=== PATIENT | male | born 1970 | race American Indian/Alaskan Native ===

== ENCOUNTER 2018-05-18 10:33 | Inpatient (IN) | payer SELFPAY ==
[2018-05-18] MEDS ORDERED: TORADOL IV ONE ×2 (11:50→15:24)
[2018-05-18] MEDS ORDERED: ZOFRAN IV ONE (11:50)
[2018-05-18] MEDS ORDERED: PEPCID IV ONE (11:50)
[2018-05-18] MEDS ORDERED: NACL 0.9% 1000 ML 1,000 ML IV ONE ×2 (11:50→15:32)
--- NOTE | 2018-05-18 11:52 | Emergency Department Report ---
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 Patient ate a fruit cup. Patient states several hours later he began becoming very nauseous with epigastric pain radiating to the back. Patient states he vomited approximately 3 times. Patient denies any fever cough, congestion or diarrhea at this time. Patient on focused physical exam does have epigastric tenderness on palpation with some mild involuntary guarding. Patient will be sent to a treatment room for IV fluids meds for symptomatic relief as well as a CT of the abdomen and pelvis and laboratory studies including a lipase.
--- NOTE | 2018-05-18 11:56 | Emergency Department Report ---
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 Patient ate a fruit cup. Patient states several hours later he began becoming very nauseous with epigastric pain radiating to the back. Patient states he vomited approximately 3 times. Patient denies any fever cough, congestion or diarrhea at this time. Patient reports that he is having pain 8 out of 10, crampy and sharp and it comes and goes. Denies any blood in his stool. No medication taken prior to coming to the emergency room. No alleviating factors but exacerbated if he takes a deep breath or with palpation. MD Complaint: abdominal pain Onset/Timin -: days(s) Location: LUQ, RUQ, epigastric Radiation: back Migration to: no migration Severity: severe Severity scale (0 -10): 8 Quality: cramping, sharp Consistency: intermittent Improves With: nothing Worsens With: vomiting, other (palpation and taking a deep breath) Context: possible food poisoning Associated Symptoms: nausea, vomiting. denies: diarrhea, fever, chills, constipation, dysuria, hematemesis, hematochezia, melena, hematuria, anorexia, syncope - Related Data Home Medications Medication Instructions Recorded Confirmed Last Taken Lisinopril [Zestril] 20 mg PO QDAY 05/18/18 05/18/18 05/18/18 Allergies Allergy/AdvReac Type Severity Reaction Status Date / Time No Known Allergies Allergy Unverified 05/18/18 11:57 ED Review of Systems ROS: Stated complaint: HARD TO BREATH/BACK PAIN Other details as noted in HPI Constitutional: denies: chills, fever ENT: denies: ear pain, throat pain, congestion Respiratory: denies: cough, shortness of breath, SOB with exertion, SOB at rest , stridor, wheezing Cardiovascular: denies: chest pain, palpitations, dyspnea on exertion, edema, syncope Gastrointestinal: abdominal pain, nausea, vomiting. denies: diarrhea, constipation, hematemesis, melena, hematochezia Genitourinary: denies: urgency, dysuria, frequency, hematuria, discharge, testicular pain, testicular mass Musculoskeletal: denies: back pain, joint swelling, arthralgia, myalgia Skin: denies: rash, lesions Neurological: denies: headache, weakness, paresthesias ED Past Medical Hx - Past Medical History Previous Medical History?: Yes Hx Hypertension: Yes - Surgical History Past Surgical History?: Yes Additional Surgical History: back surgery - Family History Family history: hypertension - Social History Smoking Status: Never Smoker Substance Use Type: None - Medications Home Medications: Home Medications Medication Instructions Recorded Confirmed Last Taken Type Lisinopril [Zestril] 20 mg PO QDAY 05/18/18 05/18/18 05/18/18 History ED Physical Exam - General Limitations: No Limitations General appearance: alert, in no apparent distress - Head Head exam: Present: atraumatic, normocephalic, normal inspection - Eye Eye exam: Present: normal appearance, PERRL, EOMI Pupils: Present: normal accommodation - ENT ENT exam: Present: normal exam, normal orophraynx, mucous membranes moist - Neck Neck exam: Present: normal inspection, full ROM. Absent: tenderness, lymphadenopathy - Respiratory Respiratory exam: Present: normal lung sounds bilaterally. Absent: respiratory distress, chest wall tenderness - Cardiovascular Cardiovascular Exam: Present: regular rate, normal rhythm, normal heart sounds. Absent: systolic murmur, diastolic murmur - GI/Abdominal GI/Abdominal exam: Present: soft, tenderness (patient has a palpate his upper quadrants.), guarding, rebound, normal bowel sounds. Absent: distended, rigid, organomegaly, mass, bruit, pulsatile mass, hernia - Extremities Exam Extremities exam: Present: normal inspection, full ROM, normal capillary refill , other (No cce. + 2 pulses in all extremities, no neurovascular compromise). Absent: tenderness, pedal edema, joint swelling, calf tenderness - Back Exam Back exam: Present: normal inspection, full ROM, other (patient ambulates without any difficulties). Absent: tenderness, CVA tenderness (R), CVA tenderness (L), muscle spasm, paraspinal tenderness, vertebral tenderness, rash noted - Neurological Exam Neurological exam: Present: alert, oriented X3, normal gait, reflexes normal. Absent: motor sensory deficit - Psychiatric Psychiatric exam: Present: normal affect, normal mood - Skin Skin exam: Present: warm, dry, intact, normal color. Absent: rash ED Course Vital Signs 05/18/18 05/18/18 05/18/18 10:58 11:39 12:24 Temperature 98.5 F Pulse Rate 89 Respiratory 18 18 18 Rate Blood Pressure 154/91 O2 Sat by Pulse 97 97 Oximetry 05/18/18 05/18/18 12:54 15:25 Temperature Pulse Rate Respiratory 18 20 Rate Blood Pressure O2 Sat by Pulse Oximetry - Reevaluation(s) Reevaluation #1: 05/18/18 13:17 Patient given Pepcid 20 mg IV, Toradol 30 mg IV and normal saline bolus. He is also given Maalox 30 mL and lidocaine 15 mL and up and reevaluation abdominal pain is better. Minimal tenderness to epigastric area. He still reports some pain to his back but reports that he is feeling better. Reevaluation #2: 05/18/18 14:50 Patient with partial small bowel obstruction. The assessment is better he said he is having some pain but only to his back. Denies any nausea present. Patient is started on IV fluid normal somnolent, NG tube to low intermittent suction and nothing by mouth status. called place for surgery. Reevaluation #3: 05/18/18 15:27 Patient is stable and normal exam stable with no pain to palpation but still minimal back pain. He received Toradol 30 mg IV and normal saline at 150 mL an hour. I spoke with Dr. Dixon's insertion and she wants patient admitted to medicine and patient's. NG tube placed to low intermittent suction. Dr. Bee as a hospitalist aware and saw patient. Patient updated on pads and is in agreement. ED Medical Decision Making - Lab Data Result diagrams: 05/18/18 Unknown 05/18/18 Unknown Lab Results 05/18/18 05/18/18 05/18/18 Range/Units 16:22 Unknown Unknown WBC 11.4 H (4.5-11.0) K/mm3 RBC 4.97 (3.65-5.03) M/mm3 Hgb 16.5 H (11.8-15.2) gm/dl Hct 46.5 H (35.5-45.6) % MCV 94 (84-94) fl MCH 33 H (28-32) pg MCHC 36 H (32-34) % RDW 12.7 L (13.2-15.2) % Plt Count 316 (140-440) K/mm3 Lymph % (Auto) 19.7 (13.4-35.0) % Gibson % (Auto) 5.7 (0.0-7.3) % Eos % (Auto) 7.7 H (0.0-4.3) % Baso % (Auto) 1.0 (0.0-1.8) % Lymph # 2.2 (1.2-5.4) K/mm3 Gibson # 0.6 (0.0-0.8) K/mm3 Eos # 0.9 H (0.0-0.4) K/mm3 Baso # 0.1 (0.0-0.1) K/mm3 Seg Neutrophils % 65.9 (40.0-70.0) % Seg Neutrophils # 7.5 (1.8-7.7) K/mm3 Sodium 134 L (137-145) mmol/L Potassium 4.5 (3.6-5.0) mmol/L Chloride 97.4 L (98-107) mmol/L Carbon Dioxide 22 (22-30) mmol/L Anion Gap 19 mmol/L BUN 9 (9-20) mg/dL Creatinine 0.5 L (0.8-1.5) mg/dL Estimated GFR > 60 ml/min BUN/Creatinine Ratio 18 % Glucose 105 H (75-100) mg/dL Lactic Acid 0.80 (0.7-2.0) mmol/L Calcium 8.9 (8.4-10.2) mg/dL Total Bilirubin 0.30 (0.1-1.2) mg/dL AST 19 (5-40) units/L ALT 18 (7-56) units/L Alkaline Phosphatase 118 (35-129) units/L Total Protein 7.3 (6.3-8.2) g/dL Albumin 4.6 (3.9-5) g/dL Albumin/Globulin Ratio 1.7 % Lipase (13-60) units/L 05/18/18 Range/Units Unknown WBC (4.5-11.0) K/mm3 RBC (3.65-5.03) M/mm3 Hgb (11.8-15.2) gm/dl Hct (35.5-45.6) % MCV (84-94) fl MCH (28-32) pg MCHC (32-34) % RDW (13.2-15.2) % Plt Count (140-440) K/mm3 Lymph % (Auto) (13.4-35.0) % Gibson % (Auto) (0.0-7.3) % Eos % (Auto) (0.0-4.3) % Baso % (Auto) (0.0-1.8) % Lymph # (1.2-5.4) K/mm3 Gibson # (0.0-0.8) K/mm3 Eos # (0.0-0.4) K/mm3 Baso # (0.0-0.1) K/mm3 Seg Neutrophils % (40.0-70.0) % Seg Neutrophils # (1.8-7.7) K/mm3 Sodium (137-145) mmol/L Potassium (3.6-5.0) mmol/L Chloride (98-107) mmol/L Carbon Dioxide (22-30) mmol/L Anion Gap mmol/L BUN (9-20) mg/dL Creatinine (0.8-1.5) mg/dL Estimated GFR ml/min BUN/Creatinine Ratio % Glucose (75-100) mg/dL Lactic Acid (0.7-2.0) mmol/L Calcium (8.4-10.2) mg/dL Total Bilirubin (0.1-1.2) mg/dL AST (5-40) units/L ALT (7-56) units/L Alkaline Phosphatase (35-129) units/L Total Protein (6.3-8.2) g/dL Albumin (3.9-5) g/dL Albumin/Globulin Ratio % Lipase 17 (13-60) units/L - EKG Data -: EKG Interpreted by Me (attending physician) EKG shows normal: sinus rhythm Rate: normal (sinus rhythm at 79 bpm) - EKG Data When compared to previous EKG there are: no significant change Interpretation: no acute changes, normal EKG - Radiology Data Radiology results: report reviewed CT scan of the abdomen and pelvis with IV contrast dated by radiologist and report reviewed by myself. Please see reports P beatient: GIL MATOS MR#: [id number] : 1970 Acct:[id number] Age/Sex: 47 / M ADM Date: 05/18/18 Loc: ED Attending Dr: Ordering Physician: ROBERT ROBINS MD Date of Service: 05/18/18 Procedure(s): CT abdomen pelvis w con Accession Number(s): [id number] cc: ROBERT ROBINS MD CT ABDOMEN PELVIS WITH CONTRAST: HISTORY: Nausea and vomiting, abdominal pain with radiation to back and. COMPARISON: none. TECHNIQUE: Helical CT in 1.25mm intervals following IV contrast. Sagittal and coronal reconstructions. FINDINGS: Lung bases: Normal. Liver: Normal. Biliary system: Normal. Pancreas: Normal. Spleen: Normal. Kidneys/ureters/bladder: Normal. Adrenal glands: Normal. Aorta: Normal. Intestines: There are multiple dilated and fluid-filled loops of jejunum. The ileum and colon are decompressed. There are multiple diverticula in the distal colon but no inflammatory changes. Appendix: Normal. Ascites: None. Adenopathy: None. Musculoskeletal: Normal. IMPRESSION: Partial small bowel obstruction. Transcribed By: TTR Dictated By: ARNOLD BARBER JR, MD Electronically Authenticated By: ARNOLD BARBER JR, MD Signed Date/Time: 05/18/181357 DD/ 53 TD/TT: 05/18/181357 - Medical Decision Making This is a 47-year-old male presents to the emergency room after having 2 days of nausea and vomited with upper abdominal pain after eating a fruit cup. Diagnostics: CT scan of the abdomen and pelvis with IV contrast shows patient with partial small bowel obstruction. Please refer to diagnostic reports section for details on CT scan. Labs: CBC and CMP stable except for some minor abnormalities. Lipase normal. Troponin normal values, lactic acid is normal. EKG normal sinus rhythm Assessment/plan 1: Abdominal pain, upper quadrant-better with Toradol 30 mg IV, lidocaine 15 mils along with Maalox 30 mils by mouth 2: Nausea and vomiting-better with Pepcid 20 mg IV and Zofran 4 mg IV. Patient was given IV fluid normal saline 1 L 3: Small bowel obstruction-patient's with NG tube to low intermittent suction, normal saline at 1 50 mL an hour and made nothing by mouth. I spoke with Dr. Dixon who is a surgeon on-call and informed her of patient's CT scan results. She wants patient to be admitted to the hospital by hospitalist which I spoke with Dr. Bee and he accepted patient to be admitted to medical floor. Patient is stable and pain is controlled. I discussed with him all his lab results and CT scan results and he voiced understanding. And he is agreement with admission. - Differential Diagnosis pancreatitis, GBD, liver disease, gastritis ,bowel obstruction, enteritis, Critical care attestation.: If time is entered above; I have spent that time in minutes in the direct care of this critically ill patient, excluding procedure time. ED Disposition Clinical Impression: Small bowel obstruction Abdominal pain Qualifiers: Abdominal location: upper abdomen, unspecified Qualified Code(s): R10.10 - Upper abdominal pain, unspecified Nausea & vomiting Qualifiers: Vomiting type: unspecified Vomiting Intractability: non-intractable Qualified Code(s): R11.2 - Nausea with vomiting, unspecified Disposition: 09 OP ADMIT IP TO THIS HOSP Is pt being admited?: Yes Does the pt Need Aspirin: No Condition: Stable Referrals: PRIMARY CARE, [Primary Care Provider] - 3-5 Days
[2018-05-18] MEDS ORDERED: LIDOCAINE VISCOUS 2% PO ONE (11:57)
[2018-05-18] MEDS ORDERED: ALUM-MAG HYDROX-SIMETH 200-200-20MG/5ML PO ONE (11:57)
[2018-05-18 12:26] LABS: Basophils # (Auto) 0.1 K/mm3 (0.0-0.1); Eosinophils # (Auto) 0.9 K/mm3 (0.0-0.4); Eosinophils % (Auto) 7.7 % (0.0-4.3); Lymphocytes # (Auto) 2.2 K/mm3 (1.2-5.4); Lymphocytes % (Auto) 19.7 % (13.4-35.0); Mean Corpuscular HGB Conc 36 % (32-34); Mean Corpuscular Hemoglobin 33 pg (28-32); Mean Corpuscular Volume 94 fl (84-94); Monocytes # (Auto) 0.6 K/mm3 (0.0-0.8); Monocytes % (Auto) 5.7 % (0.0-7.3); Platelet Count 316 K/mm3 (140-440); Red Blood Count 4.97 M/mm3 (3.65-5.03); Red Cell Distribution Width 12.7 % (13.2-15.2)
[2018-05-18 12:47] LABS: Hematocrit 46.5 % (35.5-45.6); Hemoglobin 16.5 gm/dl (11.8-15.2)
[2018-05-18 12:57] LABS: Alanine Aminotransferase 18 units/L (7-56); Albumin 4.6 g/dL (3.9-5); BUN/Creatinine Ratio 18; Blood Urea Nitrogen 9 mg/dL (9-20); Calcium 8.9 mg/dL (8.4-10.2); Hemolysis Index 14
--- NOTE | 2018-05-18 13:59 | Cat Scan Report ---
CT ABDOMEN PELVIS WITH CONTRAST: HISTORY: Nausea and vomiting, abdominal pain with radiation to back and. COMPARISON: none. TECHNIQUE: Helical CT in 1.25mm intervals following IV contrast. Sagittal and coronal reconstructions. FINDINGS: Lung bases: Normal. Liver: Normal. Biliary system: Normal. Pancreas: Normal. Spleen: Normal. Kidneys/ureters/bladder: Normal. Adrenal glands: Normal. Aorta: Normal. Intestines: There are multiple dilated and fluid-filled loops of jejunum. The ileum and colon are decompressed. There are multiple diverticula in the distal colon but no inflammatory changes. Appendix: Normal. Ascites: None. Adenopathy: None. Musculoskeletal: Normal. IMPRESSION: Partial small bowel obstruction.
[2018-05-18] MEDS: NACL 0.9% 1000 ML 1,000 ML IV ONE ×2 (15:07→15:34)
[2018-05-18] MEDS ORDERED: TORADOL ONE (15:07)
--- NOTE | 2018-05-18 15:54 | History and Physical Report ---
History of Present Illness Chief complaint: I have pain in my stomach History of present illness: 47 YO Male with HTN, Obesity, Nicotine Dependence presents to ED for evaluation. Pt states that he has experienced abdominal pain over the past 1 day with persistent symptoms over the same time frame. Pt states that pain is 8/ 10, radiates to his back, crampy in nature, sharp, intermittent, no exacerbating or alleviating factors, associated with nausea, and 3 episodes of vomiting. Pt denies fever, chills, CP, Palpitations, BRBPR, diarrhea, Trauma, skin rash. Pt acknowledges eating prepared food from a truck stop prior to symptom onset. Pt seen and evaluated in ED and found to have evidence of bowel obstruction. Surgery consulted in ED. Past History Past Medical History: hypertension Past Surgical History: Other (BAck surgery) Social history: single, smoking Family history: CAD, cancer, diabetes, hypertension Medications and Allergies Allergies Allergy/AdvReac Type Severity Reaction Status Date / Time No Known Allergies Allergy Unverified 05/18/18 11:57 Home Medications Medication Instructions Recorded Confirmed Last Taken Type Lisinopril [Zestril] 20 mg PO QDAY 05/18/18 05/18/18 05/18/18 History Active Meds: Active Medications Sodium Chloride (Nacl 0.9% 1000 Ml) 1,000 mls @ 125 mls/hr IV ONCE ONE Stop: 05/18/18 22:47 Last Admin: 05/18/18 15:34 Dose: Not Given Sodium Chloride (Nacl 0.9% 1000 Ml) 1,000 mls @ 999 mls/hr IV BOLUS ONE Stop: 05/18/18 16:32 Last Admin: 05/18/18 15:34 Dose: 999 mls/hr Review of Systems Constitutional: no weight loss, no weight gain, no fever, no chills Ears, nose, mouth and throat: no ear pain, no ear discharge, no tinnitis, no decreased hearing, no nasal congestion Cardiovascular: no chest pain, no orthopnea, no palpitations, no rapid/ irregular heart beat, no edema, no syncope, no lightheadedness, no shortness of breath Respiratory: no cough, no cough with sputum, no excessive sputum, no hemoptysis , no shortness of breath, no dyspnea on exertion Gastrointestinal: abdominal pain, nausea, vomiting, no change in bowel habits, no hematemesis, no BRBPR, no melena, no hematochezia, no excessive gas, no jaundice Genitourinary Male: no flank pain, no discharge, no urinary frequency, no urinary hesitancy, no nocturia Rectal: no pain, no incontinence, no bleeding, no itching, no hemorrhoids Musculoskeletal: no neck stiffness, no neck pain, no shooting arm pain, no arm numbness/tingling, no low back pain, no shooting leg pain Integumentary: no rash, no pruritis, no redness, no sores, no wounds Neurological: no head injury, no transient paralysis, no paralysis, no weakness , no parathesias, no numbness, no tingling, no seizures, no syncope Psychiatric: no anxiety, no memory loss, no change in sleep habits, no sleep disturbances, no hypersomnia, no change in appetite Endocrine: no cold intolerance, no heat intolerance, no polyphagia, no excessive thirst, no polydipsia, no polyuria, no nocturia Hematologic/Lymphatic: no easy bruising, no easy bleeding, no lymphadenopathy, no lymphedema Allergic/Immunologic: no urticaria, no allergic rhinitis, no wheezing, no persistent infections, no anaphylaxis, no angioedema Exam - Constitutional Vitals: Temp Pulse Resp BP Pulse Ox 98.5 F 89 20 154/91 97 05/18/18 10:58 05/18/18 10:58 05/18/18 15:25 05/18/18 10:58 05/18/18 11:39 General appearance: Present: mild distress, obese - EENT Eyes: Present: PERRL ENT: hearing intact, clear oral mucosa - Neck Neck: Present: supple, normal ROM - Respiratory Respiratory effort: normal Respiratory: bilateral: CTA - Cardiovascular Heart Sounds: Present: S1 & S2. Absent: rub, click - Extremities Extremities: pulses symmetrical, No edema Peripheral Pulses: within normal limits - Abdominal General gastrointestinal: Present: soft, tender, distended, normal bowel sounds. Absent: absent bowel sounds, hepatomegaly, splenomegaly, mass, hernia Male genitourinary: Present: normal - Integumentary Integumentary: Present: clear, warm, dry - Musculoskeletal Musculoskeletal: gait normal, strength equal bilaterally - Psychiatric Psychiatric: appropriate mood/affect, intact judgment & insight - Neurologic Neurologic: CNII-XII intact, moves all extremities Results - Labs CBC & Chem 7: 05/18/18 Unknown 05/18/18 Unknown Labs: Abnormal lab results 05/18/18 05/18/18 Range/Units Unknown Unknown WBC 11.4 H (4.5-11.0) K/mm3 Hgb 16.5 H (11.8-15.2) gm/dl Hct 46.5 H (35.5-45.6) % MCH 33 H (28-32) pg MCHC 36 H (32-34) % RDW 12.7 L (13.2-15.2) % Eos % (Auto) 7.7 H (0.0-4.3) % Eos # 0.9 H (0.0-0.4) K/mm3 Sodium 134 L (137-145) mmol/L Chloride 97.4 L (98-107) mmol/L Creatinine 0.5 L (0.8-1.5) mg/dL Glucose 105 H (75-100) mg/dL Assessment and Plan - Patient Problems (1) Bowel obstruction Current Visit: Yes Status: Acute Qualifiers: Intestinal obstruction extent: partial Plan to address problem: Surgery consulted in ED, serial abdominal exam, gastric decompression as per surgical team, CT abdomen/pelvis, serial abdominal exam. (2) Nicotine dependence Current Visit: Yes Status: Acute Qualifiers: Nicotine product type: cigarettes Substance use status: in withdrawal Qualified Code(s): F17.213 - Nicotine dependence, cigarettes, with withdrawal Plan to address problem: smoking cessation counseling, supportive care. (3) DVT prophylaxis Current Visit: Yes Status: Acute Plan to address problem: SCD to BLE while in bed.
[2018-05-18] MEDS ORDERED: ZOFRAN IV PRN (16:38)
[2018-05-18] MEDS ORDERED: SODIUM CHLORIDE FLUSH SYRINGE 10 ML IV PRN (16:38)
[2018-05-18] MEDS ORDERED: PROVENTIL IH PRN (16:38)
[2018-05-18] MEDS ORDERED: D5/0.45NS 1,000 ML IV SCH (17:25)
--- NOTE | 2018-05-18 18:07 | Consultation ---
History of Present Illness Consult date: 05/18/18 Chief complaint: abdominal pain - History of present illness History of present illness: 47 yo M with hx of HTN presents to ER with 1 day hx of periumbilical abdominal pain, nausea, and emesis. The patient states the pain is dull, radiates to both flanks, and is moderate in intensity. He has never had pain like this before. 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 He states his last BM was yesterday and he has been passing gas up until yesterday. He had one episode of emesis which consisted of the food he ate , this was nonbilious and nonbloody. He feels better now and does not have any nausea. His pain has improved after he vomited. He drove himself to the hospital. His last cscope was 3-4 years ago and showed diverticula. Past History Past Medical History: hypertension Past Surgical History: Other (Back surgery) Social history: smoking (2PPD). denies: alcohol abuse, prescription drug abuse Family history: CAD, cancer (breast, bladder), diabetes, hypertension Medications and Allergies Allergies Allergy/AdvReac Type Severity Reaction Status Date / Time No Known Allergies Allergy Unverified 05/18/18 11:57 Home Medications Medication Instructions Recorded Confirmed Last Taken Type Lisinopril [Zestril] 20 mg PO QDAY 05/18/18 05/18/18 05/18/18 History Active Meds: Active Medications Acetaminophen (Tylenol) 650 mg PO Q4H PRN PRN Reason: Pain MILD(1-3)/Fever >100.5/ROSAS Albuterol (Proventil) 2.5 mg IH Q4HRT PRN PRN Reason: Shortness Of Breath Dextrose/Sodium Chloride (D5/0.45ns) 1,000 mls @ 100 mls/hr IV DIRECT CARRIE Lisinopril (Zestril) 20 mg PO QDAY CARRIE Ondansetron HCl (Zofran) 4 mg IV Q8H PRN PRN Reason: Nausea And Vomiting Sodium Chloride (Sodium Chloride Flush Syringe 10 Ml) 10 ml IV BID CARRIE Sodium Chloride (Sodium Chloride Flush Syringe 10 Ml) 10 ml IV PRN PRN PRN Reason: LINE FLUSH Review of Systems All systems: negative (10 pt ROS performed and negative except for that listed in HPI) Exam Vital Signs Temp Pulse Resp BP Pulse Ox 98.5 F 89 18 154/91 97 05/18/18 10:58 05/18/18 10:58 05/18/18 10:58 05/18/18 10:58 05/18/18 10:58 Narrative exam: Gen: AAOx3. NAD ENT: no scleral icterus or conjunctival pallor CV: s1, S2+ Resp: even and unlabored Abd: soft, ND, mild TTP in LUQ, epigastrum and L mid abdomen. No r/r/g Ext: no c/c/e Results - Labs 05/18/18 Unknown 05/18/18 Unknown Abnormal lab results 05/18/18 05/18/18 Range/Units Unknown Unknown WBC 11.4 H (4.5-11.0) K/mm3 Hgb 16.5 H (11.8-15.2) gm/dl Hct 46.5 H (35.5-45.6) % MCH 33 H (28-32) pg MCHC 36 H (32-34) % RDW 12.7 L (13.2-15.2) % Eos % (Auto) 7.7 H (0.0-4.3) % Eos # 0.9 H (0.0-0.4) K/mm3 Sodium 134 L (137-145) mmol/L Chloride 97.4 L (98-107) mmol/L Creatinine 0.5 L (0.8-1.5) mg/dL Glucose 105 H (75-100) mg/dL Diabetes panel 05/18/18 Range/Units Unknown Sodium 134 L (137-145) mmol/L Potassium 4.5 (3.6-5.0) mmol/L Chloride 97.4 L (98-107) mmol/L Carbon Dioxide 22 (22-30) mmol/L BUN 9 (9-20) mg/dL Creatinine 0.5 L (0.8-1.5) mg/dL Glucose 105 H (75-100) mg/dL Calcium 8.9 (8.4-10.2) mg/dL AST 19 (5-40) units/L ALT 18 (7-56) units/L Alkaline Phosphatase 118 (35-129) units/L Total Protein 7.3 (6.3-8.2) g/dL Albumin 4.6 (3.9-5) g/dL Calcium panel 05/18/18 Range/Units Unknown Calcium 8.9 (8.4-10.2) mg/dL Albumin 4.6 (3.9-5) g/dL Pituitary panel 05/18/18 Range/Units Unknown Sodium 134 L (137-145) mmol/L Potassium 4.5 (3.6-5.0) mmol/L Chloride 97.4 L (98-107) mmol/L Carbon Dioxide 22 (22-30) mmol/L BUN 9 (9-20) mg/dL Creatinine 0.5 L (0.8-1.5) mg/dL Glucose 105 H (75-100) mg/dL Calcium 8.9 (8.4-10.2) mg/dL Adrenal panel 05/18/18 Range/Units Unknown Sodium 134 L (137-145) mmol/L Potassium 4.5 (3.6-5.0) mmol/L Chloride 97.4 L (98-107) mmol/L Carbon Dioxide 22 (22-30) mmol/L BUN 9 (9-20) mg/dL Creatinine 0.5 L (0.8-1.5) mg/dL Glucose 105 H (75-100) mg/dL Calcium 8.9 (8.4-10.2) mg/dL Total Bilirubin 0.30 (0.1-1.2) mg/dL AST 19 (5-40) units/L ALT 18 (7-56) units/L Alkaline Phosphatase 118 (35-129) units/L Total Protein 7.3 (6.3-8.2) g/dL Albumin 4.6 (3.9-5) g/dL - Imaging CT scan - abdomen: report reviewed, image reviewed CT scan - pelvis: report reviewed, image reviewed Assessment and Plan 47 yo M with pSBO likely related to gastroenteritis, dehydration Plan: 1. admit to medical service 2. NPO 3. IVF 4. serial abdominal exams 5. obs series in am 6. repeat BMP in am 7. prn pain and nausea control 8. hold off on NGT for now, will order to be placed if patient experiences persistent nausea or emesis. At this time he is asymptomatic. 9. activity as tolerated Thank you for this consultation, please call with questions or concerns.
[2018-05-18] MEDS: TYLENOL PO PRN (21:06)
[2018-05-18] MEDS: SODIUM CHLORIDE FLUSH SYRINGE 10 ML IV SCH (21:06)
[2018-05-18] MEDS: D5NS 1,000 ML IV SCH (21:07)
[2018-05-18] MEDS: HABITROL TD SCH (22:02)
[2018-05-19 06:11] LABS: BUN/Creatinine Ratio 16; Blood Urea Nitrogen 8 mg/dL (9-20); Calcium 8.2 mg/dL (8.4-10.2); Hemolysis Index 5
--- NOTE | 2018-05-19 09:14 | XRay Report ---
ABDOMINAL SERIES: History: Partial small bowel obstruction. AP view of the chest is normal. Mildly dilated loops of small bowel with air-fluid levels are again noted in the abdomen. There is normal gas and stool in the colon. No evidence for free air, large mass or pathologic calcifications. IMPRESSION: No significant change in the partial small bowel obstruction pattern.
[2018-05-19] MEDS: TYLENOL PO PRN (10:50)
[2018-05-19] MEDS: ZESTRIL PO SCH (10:52)
[2018-05-19] MEDS: SODIUM CHLORIDE FLUSH SYRINGE 10 ML IV SCH ×2 (10:52→21:25)
[2018-05-19] MEDS: D5NS 1,000 ML IV SCH ×2 (10:59→23:05)
--- NOTE | 2018-05-19 13:31 | Progress Note ---
Assessment and Plan 47 yo M with pSBO likely related to gastroenteritis, dehydration Plan: 1. start clear liquid diet -> adv to soft diet in am if tolerates 2. decrease IVF, dehydration improved 3. obs series unchanged however patient clinically improving 4. prn pain and nausea control 5. DC planning in am if tolerates advancement of diet. Thank you for this consultation, please call with questions or concerns. Subjective Date of service: 05/19/18 Narrative: Pt seen and examined. No overnight events. Had several liquid bowel movements today and is passing flatus. No n/v. Abdominal pain is resolved. No f/c Objective Vital Signs - 12hr 05/19/18 04:59 Temperature 99.4 F Pulse Rate 71 Respiratory 18 Rate Blood Pressure 124/80 O2 Sat by Pulse 94 Oximetry - General physical appearance Narrative Exam: Gen: AAOx3. NAD CV: S1, S2+ Resp: even and unlabored Abd: soft, NT, ND Ext: no c/c/e - Labs 05/18/18 Unknown 05/19/18 05:33 Diabetes panel 05/19/18 Range/Units 05:33 Sodium 136 L (137-145) mmol/L Potassium 4.2 (3.6-5.0) mmol/L Chloride 101.5 (98-107) mmol/L Carbon Dioxide 23 (22-30) mmol/L BUN 8 L (9-20) mg/dL Creatinine 0.5 L (0.8-1.5) mg/dL Glucose 105 H (75-100) mg/dL Calcium 8.2 L (8.4-10.2) mg/dL Calcium panel 05/19/18 Range/Units 05:33 Calcium 8.2 L (8.4-10.2) mg/dL Pituitary panel 05/19/18 Range/Units 05:33 Sodium 136 L (137-145) mmol/L Potassium 4.2 (3.6-5.0) mmol/L Chloride 101.5 (98-107) mmol/L Carbon Dioxide 23 (22-30) mmol/L BUN 8 L (9-20) mg/dL Creatinine 0.5 L (0.8-1.5) mg/dL Glucose 105 H (75-100) mg/dL Calcium 8.2 L (8.4-10.2) mg/dL Adrenal panel 05/19/18 Range/Units 05:33 Sodium 136 L (137-145) mmol/L Potassium 4.2 (3.6-5.0) mmol/L Chloride 101.5 (98-107) mmol/L Carbon Dioxide 23 (22-30) mmol/L BUN 8 L (9-20) mg/dL Creatinine 0.5 L (0.8-1.5) mg/dL Glucose 105 H (75-100) mg/dL Calcium 8.2 L (8.4-10.2) mg/dL
--- NOTE | 2018-05-19 18:13 | Progress Note ---
Assessment and Plan Assessment and Plan - Patient Problems (1) Bowel obstruction Current Visit: Yes Status: Acute Qualifiers: Intestinal obstruction extent: partial Plan to address problem: Improved Had a BM Tolerating clears Will D/C in AM if tolerating food well. (2) Nicotine dependence Current Visit: Yes Status: Acute Qualifiers: Nicotine product type: cigarettes Substance use status: in withdrawal Qualified Code(s): F17.213 - Nicotine dependence, cigarettes, with withdrawal Plan to address problem: smoking cessation counseling, supportive care. (3) DVT prophylaxis Current Visit: Yes Status: Acute Plan to address problem: SCD to BLE while in bed. Subjective Date of service: 05/19/18 Principal diagnosis: Partial SBO Interval history: Sx better Had a BM Able to tolerate clears Objective - Constitutional General appearance: Present: no acute distress, well-nourished - EENT Eyes: PERRL, EOM intact ENT: hearing intact, clear oral mucosa Ears: bilateral: normal - Neck Neck: supple, normal ROM - Respiratory Respiratory effort: normal Respiratory: bilateral: CTA - Breasts Breasts: normal - Cardiovascular Heart rate: 76 Rhythm: regular Heart Sounds: Present: S1 & S2. Absent: gallop, rub Extremities: pulses intact, No edema, normal color, Full ROM - Gastrointestinal General gastrointestinal: Present: soft, non-tender, non-distended, normal bowel sounds - Genitourinary Male genitourinary: normal - Integumentary Integumentary: clear, warm, dry - Musculoskeletal Musculoskeletal: 1, strength equal bilaterally - Neurologic Neurologic: moves all extremities - Psychiatric Psychiatric: memory intact, appropriate mood/affect, intact judgment & insight - Allied health notes Allied health notes reviewed: nursing, case management - Labs CBC & Chem 7: 05/20/18 06:09 05/20/18 06:09 Labs: Abnormal lab results 05/19/18 Range/Units 05:33 Sodium 136 L (137-145) mmol/L BUN 8 L (9-20) mg/dL Creatinine 0.5 L (0.8-1.5) mg/dL Glucose 105 H (75-100) mg/dL Calcium 8.2 L (8.4-10.2) mg/dL
[2018-05-19] MEDS: HABITROL TD SCH (21:24)
[2018-05-20 06:13] VITALS: BP 135/79
[2018-05-20 07:27] LABS: Basophils # (Auto) 0.1 K/mm3 (0.0-0.1); Basophils % (Auto) 0.8 % (0.0-1.8); Eosinophils # (Auto) 0.8 K/mm3 (0.0-0.4); Eosinophils % (Auto) 11.1 % (0.0-4.3); Hematocrit 41.6 % (35.5-45.6); Hemoglobin 14.8 gm/dl (11.8-15.2); Lymphocytes # (Auto) 1.8 K/mm3 (1.2-5.4); Lymphocytes % (Auto) 26.5 % (13.4-35.0); Mean Corpuscular HGB Conc 36 % (32-34); Mean Corpuscular Hemoglobin 33 pg (28-32); Mean Corpuscular Volume 94 fl (84-94); Monocytes # (Auto) 0.5 K/mm3 (0.0-0.8); Monocytes % (Auto) 7.9 % (0.0-7.3); Platelet Count 243 K/mm3 (140-440); Red Blood Count 4.41 M/mm3 (3.65-5.03)
[2018-05-20 07:46] LABS: Alanine Aminotransferase 22 units/L (7-56); BUN/Creatinine Ratio 8; Blood Urea Nitrogen 4 mg/dL (9-20); Calcium 8.9 mg/dL (8.4-10.2); Hemolysis Index 4
--- NOTE | 2018-05-20 09:13 | Discharge Summary ---
Providers - Providers Date of Admission: 05/18/18 16:38 Date of discharge: 05/20/18 Attending physician: SANJUANA DE LA FUENTE 05/18/18 15:59 Consult to Physician [CONS] Urgent Comment: DR ALTMAN NOTIFIED Consulting Provider: NATACHA ALTMAN Physician Instructions: Reason For Exam: Small bpwel obstruction Primary care physician: [employer] Hospitalization Condition: Stable Hospital course: - Patient Problems (1) Bowel obstruction Current Visit: Yes Status: Acute Qualifiers: Intestinal obstruction extent: partial Plan to address problem: Improved Had a BM Tolerating clears Will D/C today (2) Nicotine dependence Current Visit: Yes Status: Acute Qualifiers: Nicotine product type: cigarettes Substance use status: in withdrawal Qualified Code(s): F17.213 - Nicotine dependence, cigarettes, with withdrawal Plan to address problem: smoking cessation counseling, supportive care. Counselled about effects of smoking Disposition: DC-01 TO HOME OR SELFCARE Core Measure Documentation - Palliative Care Palliative Care/ Comfort Measures: Not Applicable - Core Measures Any of the following diagnoses?: none Exam - Constitutional Vitals: Temp Pulse Resp BP Pulse Ox 98.6 F 67 18 135/79 94 05/20/18 05:15 05/20/18 05:15 05/20/18 05:15 05/20/18 05:15 05/20/18 05:15 General appearance: Present: no acute distress, well-nourished - EENT Eyes: Present: PERRL ENT: hearing intact, clear oral mucosa - Neck Neck: Present: supple, normal ROM - Respiratory Respiratory effort: normal Respiratory: bilateral: CTA - Cardiovascular Heart rate: 76 Rhythm: regular Heart Sounds: Present: S1 & S2. Absent: rub, click - Extremities Extremities: no ischemia, pulses intact, pulses symmetrical, No edema Peripheral Pulses: within normal limits - Abdominal General gastrointestinal: Present: soft, non-tender, non-distended, normal bowel sounds Male genitourinary: Present: normal - Integumentary Integumentary: Present: clear, warm, dry - Musculoskeletal Musculoskeletal: gait normal, strength equal bilaterally - Psychiatric Psychiatric: appropriate mood/affect, intact judgment & insight - Neurologic Neurologic: CNII-XII intact, moves all extremities - Allied Health Allied health notes reviewed: nursing, case management Plan Activity: no restrictions Diet: regular Follow up with: PRIMARY CARE, [Primary Care Provider] - 3-5 Days
[2018-05-20] MEDS: SODIUM CHLORIDE FLUSH SYRINGE 10 ML IV SCH (10:36)
[2018-05-20] MEDS: ZESTRIL PO SCH (10:36)
--- NOTE | 2018-05-20 12:18 | Event Note ---
Date: 05/20/18 Pt seen. He is without abdominal pain, n/v. He tolerated soft diet this am. No f /c. He is already discharged by Dr. Geronimo. He was advised to stay on a soft diet for the next 2-3 days.
== END 2018-05-20 12:19 | disposition home or self-care (01) | DRG 390 ==
LOC: ED 10:33 → 3A 16:38
PROVIDERS: ADMIT Internal Medicine; ATTEND Internal Medicine
PROC: 0D9670Z Drainage of Stomach with Drainage Device, Via Natural or Artificial Opening (ICD-10-PCS; principal; 2018-05-18)
DX: K56.600 Partial intestinal obstruction, unspecified as to cause (principal); I10 Essential (primary) hypertension; E66.9 Obesity, unspecified; I25.10 Atherosclerotic heart disease of native coronary artery without angina pectoris; F17.210 Nicotine dependence, cigarettes, uncomplicated; E86.0 Dehydration; Z68.32 Body mass index [BMI] 32.0-32.9, adult; Z98.1 Arthrodesis status; Z83.3 Family history of diabetes mellitus; Z82.49 Family history of ischemic heart disease and other diseases of the circulatory system; Z80.52 Family history of malignant neoplasm of bladder; Z80.3 Family history of malignant neoplasm of breast
CPT/HCPCS: 36415; 74022; 74177; 80048; 80053; 82140; 83690; 85025; 93005; 93010; 96361; 96374; 96375; 96376; 99406; J1885; J2405; J7030; J7042; Q9967